=== PATIENT | female | born 1980 | race Caucasian/White ===

== ENCOUNTER 2020-02-13 21:38 | Emergency (ER) | payer MEDICAID ==
[~2020-02-13] VITALS: Ht 160 cm; Wt 64.2 kg
[2020-02-13] MEDS ORDERED: VANCOMYCIN 1G/D5W 200 ML PIGGYBACK IV ONE (22:30)
[2020-02-13] MEDS ORDERED: IV NS 1000 ML 1,000 ML IV ONE (22:30)
[2020-02-13 22:56] LABS: BASOPHILS # (AUTO) 0.1 K/uL (0.0-8.0); BASOPHILS % (AUTO) 0.3 % (0.0-2.0); EOSINOPHILS # (AUTO) 0.1 K/uL (0.0-0.7); EOSINOPHILS % (AUTO) 0.4 % (0.0-7.0); HEMATOCRIT 33.8 % (31.2-41.9); HEMOGLOBIN 10.8 g/dL (10.9-14.3); LYMPHOCYTES # (AUTO) 1.5 K/uL (20.0-40.0); LYMPHOCYTES % (AUTO) 6.5 % (20.5-51.5); MEAN CORPUSCULAR HEMOGLOBIN 25.4 uug (24.7-32.8); MEAN CORPUSCULAR HGB CONC 32 g/dL (32.3-35.6); MONOCYTES # (AUTO) 0.7 K/uL (2.0-10.0); MONOCYTES % (AUTO) 3.1 % (0.0-11.0); NEUTROPHILS # (AUTO) 21.2 K/uL (1.8-8.9); NEUTROPHILS % (AUTO) 89.7 % (38.5-71.5); PLATELET COUNT (AUTO) 612 K/uL (179-408); RED BLOOD CELL COUNT(AUTO) 4.27 MIL/uL (3.63-4.92); WHITE BLOOD COUNT (AUTO) 23.6 K/uL (3.8-11.8)
[2020-02-13 23:05] LABS: CREATININE 0.7 mg/dL (0.6-1.3); POTASSIUM 3.6 mmol/L (3.5-5.1)
[2020-02-13] MEDS ORDERED: VANCOMYCIN IV 200 ML ONE (23:34)
[2020-02-14 00:01] LABS: LYMPHOCYTES % (MANUAL) 7 % (20-40); MONOCYTES % (MANUAL) 4 % (2-10); NEUTROPHILS % (MANUAL) 89 % (42-75)
[2020-02-14] MEDS ORDERED: IOHEXOL 300MG/ML 100 ML INFUS..BTL ONE (02:06)
[2020-02-14] MEDS ORDERED: SWABABLE VALVE TRANSFER SET EA MC ONE (02:06)
[2020-02-14] MEDS ORDERED: IV NORMAL SALINE 250 ML IV ONE (02:06)
[2020-02-14] MEDS ORDERED: VANCOMYCIN 1G/D5W 200 ML PIGGYBACK IV ONE (04:00)
[2020-02-14] MEDS ORDERED: LORAZEPAM 2 MG/1 ML VIAL IV ONE (04:15)
[2020-02-14] MEDS ORDERED: LORAZEPAM 2 MG/1 ML VIAL ONE (04:16)
[2020-02-14] MEDS ORDERED: VANCOMYCIN IV 200 ML ONE (04:30)
[2020-02-14] MEDS ORDERED: ONDANSETRON 4 MG/2 ML VIAL IV PRN (04:45)
[2020-02-14] MEDS ORDERED: ACETAMINOPHEN 325 MG TABLET PO PRN (04:45)
[2020-02-14] MEDS ORDERED: HYDROCODONE/APAP 5-325MG TABLET PO PRN (04:45)
[2020-02-14] MEDS ORDERED: MAGNESIUM HYDROXIDE 30 ML LIQUID UDC PO PRN (04:45)
[2020-02-14] MEDS ORDERED: Z GUARD REMEDY PASTE 57 GM TUBE TOP PRN (04:45)
[2020-02-14] MEDS ORDERED: CLINDAMYCIN PHOSPHATE IV 600 MG in IV DEXTROSE 5% 100 ML IV SCH (06:00)
[2020-02-14] MEDS ORDERED: CLINDAMYCIN PHOSPHATE 600 MG/4 ML VIAL ONE ×2 (06:14→09:19)
[2020-02-14] MEDS ORDERED: MEROPENEM 1GM/NS 100ML IVPB **ER PYXIS ONLY IV ONE (06:56)
[2020-02-14] MEDS ORDERED: MEROPENEM 1,000 MG in IV NORMAL SALINE 100 ML IV ONE (07:00)
[2020-02-14] MEDS: POLYMYXIN B SULFATE IR ONE ×2 (08:12)
[2020-02-14] MEDS: BACITRACIN 50000 UNIT IR ONE ×2 (08:12)
[2020-02-14] MEDS ORDERED: IV NORMAL SALINE 1000 ML BAG IV ONE (08:15)
[2020-02-14] MEDS ORDERED: ONDANSETRON 4 MG/2 ML VIAL IV ONE (08:15)
[2020-02-14] MEDS ORDERED: MORPHINE SULFATE 4 MG/1 ML DISP.SYRIN IV ONE (08:15)
[2020-02-14] MEDS ORDERED: NEOMY/BACITRA/POLYMYXIN B OINT UD PACKET TP ONE (08:17)
[2020-02-14] MEDS ORDERED: MORPHINE SULFATE 4 MG/1 ML DISP.SYRIN ONE (08:18)
[2020-02-14] MEDS ORDERED: MORPHINE SULFATE 2 MG/1 ML DISP.SYRIN ONE (08:18)
[2020-02-14] MEDS ORDERED: ONDANSETRON 4 MG/2 ML VIAL ONE (08:18)
[2020-02-14] MEDS ORDERED: CIPROFLOXACIN IV 400 MG in PREMIXED 1 EACH IV SCH (09:00)
[2020-02-14] MEDS ORDERED: MIDAZOLAM HCL 2 MG/2 ML VIAL ONE (09:15)
[2020-02-14] MEDS ORDERED: FENTANYL CITRATE 250 MCG/5 ML AMPUL ONE (09:16)
[2020-02-14] MEDS ORDERED: FENTANYL CITRATE 100 MCG/2 ML AMPUL ONE (09:16)
[2020-02-14] MEDS ORDERED: HYDROMORPHONE 2 MG/1 ML DISP.SYRIN ONE (09:17)
[2020-02-14] MEDS ORDERED: SUCCINYLCHOLINE CHLORIDE 200 MG/10 ML VIAL ONE (09:18)
[2020-02-14] MEDS ORDERED: VANCOMYCIN IV 750 MG in IV DEXTROSE 5% 250 ML IV SCH (10:00)
[2020-02-14] MEDS ORDERED: MEROPENEM 1 G in IV NORMAL SALINE 100 ML IV SCH (14:00)
== END 2020-02-14 10:10 | disposition left against medical advice (07) ==
LOC: ER 21:42 → MEDSURG3 02-14 08:46 → UNDOADMIN 02-14 08:46 → DS 02-14 09:30 → ER 02-14 10:10
DX: L03.116 Cellulitis of left lower limb (principal); L03.115 Cellulitis of right lower limb; R94.8 Abnormal results of function studies of other organs and systems; S71.132S Puncture wound without foreign body, left thigh, sequela; S71.131S Puncture wound without foreign body, right thigh, sequela; X78.8XXS Intentional self-harm by other sharp object, sequela; F11.10 Opioid abuse, uncomplicated; Z88.0 Allergy status to penicillin; Z88.2 Allergy status to sulfonamides; Z53.29 Procedure and treatment not carried out because of patient's decision for other reasons; D64.9 Anemia, unspecified; L02.416 Cutaneous abscess of left lower limb; L02.415 Cutaneous abscess of right lower limb; I96 Gangrene, not elsewhere classified; Z20.828 Contact with and (suspected) exposure to other viral communicable diseases
CPT/HCPCS: 10061; 36415 ×2; 73551 ×2; 73701; 80048; 83605; 84702; 85007; 85025; 85730; 86850; 86900; 86901; 87426; 96361; 96365; 96366; 96367; 96375; 99291; J0330; J2060; J2185; J2270 ×2; J2405; J3370 ×3; J3490 ×3; J7060; Q9967; 70030-TC; A4663; J1170; J2250; J3010; J7030; J7050

== ENCOUNTER 2020-02-14 16:41 | Inpatient (IN) | payer MEDICAID ==
[~2020-02-14] VITALS: Ht 160 cm; Wt 59.0 kg
[2020-02-14] MEDS ORDERED: MEROPENEM 1,000 MG in IV NORMAL SALINE 100 ML IV ONE (19:15)
[2020-02-14] MEDS ORDERED: VANCOMYCIN 1G/D5W 200 ML PIGGYBACK IV ONE (19:15)
[2020-02-14] MEDS ORDERED: CLINDAMYCIN PHOSPHATE IV 900 MG in IV DEXTROSE 5% 100 ML IV ONE (19:15)
[2020-02-14 19:36] LABS: BASOPHILS # (AUTO) 0.1 K/uL (0.0-8.0); BASOPHILS % (AUTO) 0.7 % (0.0-2.0); EOSINOPHILS # (AUTO) 0.3 K/uL (0.0-0.7); EOSINOPHILS % (AUTO) 1.6 % (0.0-7.0); HEMATOCRIT 31.3 % (31.2-41.9); HEMOGLOBIN 10.2 g/dL (10.9-14.3); LYMPHOCYTES # (AUTO) 2.3 K/uL (20.0-40.0); LYMPHOCYTES % (AUTO) 13.2 % (20.5-51.5); MEAN CORPUSCULAR HEMOGLOBIN 25.6 uug (24.7-32.8); MEAN CORPUSCULAR HGB CONC 33 g/dL (32.3-35.6); MEAN CORPUSCULAR VOLUME 78.7 fL (75.5-95.3); MONOCYTES # (AUTO) 1.1 K/uL (2.0-10.0); MONOCYTES % (AUTO) 6.2 % (0.0-11.0); NEUTROPHILS # (AUTO) 13.9 K/uL (1.8-8.9); NEUTROPHILS % (AUTO) 78.3 % (38.5-71.5); PLATELET COUNT (AUTO) 631 K/uL (179-408); RED BLOOD CELL COUNT(AUTO) 3.97 MIL/uL (3.63-4.92); WHITE BLOOD COUNT (AUTO) 17.7 K/uL (3.8-11.8)
[2020-02-14 19:43] LABS: CREATININE 0.7 mg/dL (0.6-1.3); POTASSIUM 3.5 mmol/L (3.5-5.1)
[2020-02-14] MEDS ORDERED: VANCOMYCIN IV 200 ML ONE (19:46)
[2020-02-14] MEDS ORDERED: CLINDAMYCIN 900MG/D5W 100ML IVPB **ER PYXIS ONLY IJ ONE (19:47)
[2020-02-14] MEDS ORDERED: MEROPENEM 1GM/NS 100ML IVPB **ER PYXIS ONLY IV ONE (19:48)
[2020-02-14 19:49] LABS: BILIRUBIN,TOTAL 0.2 mg/dL (0.2-1.0); TOTAL PROTEIN, SERUM 7.4 g/dL (6.4-8.2)
--- NOTE | 2020-02-14 20:18 | NUR ---
ZARINAD on the line with Dr. Tamayo.
--- NOTE | 2020-02-14 21:00 | NUR ---
Patient in bed at lowest position, no acute distress noted at this time. Will continue to monitor.
--- NOTE | 2020-02-14 22:22 | NUR ---
Estiven Finney paged, awaiting call back.
--- NOTE | 2020-02-14 22:42 | NUR ---
Estiven Finney on the line with ERMD
--- NOTE | 2020-02-14 23:04 | NUR ---
Report given to KRISTOPHER San
--- NOTE | 2020-02-14 23:30 | NUR ---
Patient transported to [facility] in stable condition.
[2020-02-15 00:03] VITALS: BP 102/51
--- NOTE | 2020-02-15 00:15 | NUR ---
Admitted Patient to [facility] from ER via gurney alert x 4 ,able to ambulates to bathroom .Peripheral line on left upper arm 20g patent and intact no s/s of infiltration.Started NS 0.9 running well at 75 cc/hr.Patient started crying and yelling demanding for Morphine IV or dilaudid c/o pain on bilateral thigh, refused skin/wound photos to be taken.PRN Willis given .Call light within reach.Safety measures in place.Will continue to monitor.
[2020-02-15] MEDS ORDERED: IV NS 1000 ML 1,000 ML IV PRN (00:25)
[2020-02-15] MEDS ORDERED: ONDANSETRON 4 MG/2 ML VIAL IV PRN (00:30)
[2020-02-15] MEDS ORDERED: ACETAMINOPHEN 325 MG TABLET PO PRN (00:30)
[2020-02-15] MEDS ORDERED: Z GUARD REMEDY PASTE 57 GM TUBE TOP PRN (00:30)
[2020-02-15] MEDS: HYDROCODONE/APAP 5-325MG TABLET PO PRN ×3 (01:21→09:42)
--- NOTE | 2020-02-15 09:25 | NUR ---
Received patient in room, patient is AAO x 4. NO SOB or any acute distress noted. NO complains of pain at this time. IV line of left upper arm gauge 20 intact and patent, IV NS running at 75ml/hr at this time. patient ate breakfast. Needs attended, safety measures in place and will continue with care.
--- NOTE | 2020-02-15 09:40 | NUR ---
Patient noted anxious and screaming stating her "" was not picking his phone and that she wants to leave. Explained to patient an IV antibiotic order is in place for treatment and that it is important to continue with medication therapy. Patient still anxious and agitated but agreed for ATB therapy. Safety needs in place, call light left at bed side and will continue with care.
--- NOTE | 2020-02-15 09:51 | NUR ---
Patient noted crying and screaming, Patient asked for pain pill [place] 5/325mg 1 tab PO PRN for pain level 7/10 administered. Will continue with care.
[2020-02-15] MEDS ORDERED: VANCOMYCIN IV 1,000 MG in IV DEXTROSE 5% 250 ML IV SCH (10:00)
[2020-02-15 11:42] VITALS: BP 101/59
--- NOTE | 2020-02-15 12:00 | NUR ---
Informed security to talk to patient's "" not to leave yet, because patient wants to leave AMA.
--- NOTE | 2020-02-15 12:00 | NUR ---
Patient seen by Ashley Pulido, TARA. Patient started crying and screaming while discussing care with MANAGER BOOKS. patient stated " I heard someone say my is here downstairs and i want to go" Patient started crying, screaming and noted getting agitated; While trying to explain care patient stated again " I want my right now. I just want to leave" Explained to patient that she is on IV antibiotics for Cellulitis. Patient stated "I don't care i just want to leave" and started screaming and crying. Explained to patient it would be AMA if patient was going to be discharged. Patient agreed. Explained to patient also the importance of continuing the ATB. Patient still crying and screaming and stated "I want to go to my before he leaves".
--- NOTE | 2020-02-15 12:18 | NUR ---
10:15am: SW conducted a social work msw consultation with the patient, through [facility]. SW is a 39 year old female. Per patient's records, patient came to the ED yesterday for cellulitis and infection on her thighs, but left AMA before getting the necessary services and treatment. According to patient's records, patient returned to the ED last night, and got admitted to the medical floor. Patient was receptive to meeting with this SW. Patient was sitting up in her bed, presented with a blunted affect, did not maintain much eye contact with this SW throughout the interview, however was still answering this SW's questions. Patient was alert, and oriented x 4. Patient's appearance was disheveled. Speech and thought process were clear. Patient states that she is homeless, and has been living at the [facility] in [place] with her boyfriend. Patient states that she has [employer] insurance, but claims that she no form of income, and will probably not [facility] to [facility]. 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 Patient stated that she has applied for unemployment, but has not yet received any money. Patient reports current use of heroin, and stated that she uses heroin daily. SW inquired about patient's interest in substance abuse programs, and patient stated that although she has been in treatment in the past, they were not useful and that she was not interested in treatment programs at this time. SW explored patient's need for other community resources, such as resources for meals, showers, and medical clinics, and patient expressed agreement with receiving this information. Patient asked this SW about [facility], and SW stated that SW would call [employer] to inquire about patient's eligibility. Patient expressed understanding and agreement. SW to follow-up on community resources discussed, and will then follow-up with the patient. 10:35am: SW called [facility] [phone] and spoke with Lan. Lan gathered demographic information and created an ID # for the patient ([id number]). Lan informed this SW that there were no rooms currently available in Service [facility], however proceeded to complete an assessment to see if patient would qualify to be put on the waitlist. Lan completed a phone assessment with this SW, by gathering personal and medical information in order to screen for patient's eligibility for the program. At the end of the assessment, Lan informed this SW that based on the information gathered, the patient did not meeting the medical criteria for [facility] program. MICHELLE expressed understanding and thanked Lan for his time. 11:55am: SW called patient's nurse Zac to ask her to reconnect this SW to the patient, via [facility]. SW was informed by charge master specialist Bahman that patient was leaving AMA. SW asked if SW can still connect with the patient via [facility] just to give her an update on the resources and [facility]. Patient's nurse Zac assisted with connecting this SW with the patient via [facility]. SW informed the patient that at this time she did not qualify for [facility], and explained the reason for it. SW then asked the patient if she was still interested in the community resources that SW discussed with her earlier today, and patient expressed agreement. Patient was provided with a pair of pants and a shirt. Patient was also provided with the homeless resource packet which included the following resources: a list of year round shelters [facility] [address], ; [facility] [address] [facility], ; and [facility] [address] [facility], [phone], along with resources for places to go for food, showers, substance abuse treatment, mental health services, community medical clinics, and pharmacies. These include the following: the [facility] homeless directory which provides a list of places that individuals can go to throughout the week for hot meals, sack lunches, food pantries, and showers; a list of mental health clinics: [facility] [address] [place] [address], ; [facility] [address] [facility] [place] [address], ; [facility] [address] [place] [address], ; a list of medical clinics: [facility] [address] [facility] [facility] [address], [place], ; [facility] [address], [address], [place] [address]; [facility] [address] [place] [address], ; a list of locations of pharmacies. MICHELLE instructed KRISTOPHER Frank to have patient sign the Homeless Patient Waiver Form, and Zac expressed agreement. Patient has chosen to leave A. No further SS interventions needed at this time.
--- NOTE | 2020-02-15 12:30 | NUR ---
sheet metal worker maintenance discussed with patient. Patient signed AMA paper. SW provided clothing to patient. Patient ate lunch. Patient also provided Homeless resource packet. And left hospital with "" at 12:25.
== END 2020-02-15 12:25 | disposition left against medical advice (07) | DRG 383 ==
LOC: ER 16:42 → MEDSURG3 23:49
PROVIDERS: ADMIT Registered Nurse; ATTEND Registered Nurse
DX: L03.116 Cellulitis of left lower limb (principal); L03.115 Cellulitis of right lower limb; D64.9 Anemia, unspecified; L02.416 Cutaneous abscess of left lower limb; D72.829 Elevated white blood cell count, unspecified; F19.10 Other psychoactive substance abuse, uncomplicated; Z76.5 Malingerer [conscious simulation]; L02.31 Cutaneous abscess of buttock
CPT/HCPCS: 36415; 83605; 85025; A4663; G0378; J2185; J3370; J3490; J7030; J7060